=== PATIENT | male | born 1970 | race Caucasian/White ===

== ENCOUNTER 2017-10-25 06:15 | Observation (INO) | payer OTHER ==
[~2017-10-25 06:15] MED LIST: Buffered Lidocaine 0.9% SYRIN* 5 ML/SYR SYRINGE INTRADERM ONE; Famotidine IV* 10 MG/ML 2 ML (20 mg) IV ONE; Metoclopramide TAB* 10 MG PO ONE
[2017-10-25] MEDS ORDERED: Famotidine IV* 10 MG/ML 2 ML (20 mg) ONE (06:45)
[2017-10-25] MEDS ORDERED: Metoclopramide TAB* 10 MG ONE (06:45)
[2017-10-25] MEDS ORDERED: ceFAZolin 2 GM PREMIX (*) 2 GM/50 ML BAG IVPB ONE (06:45)
[2017-10-25] MEDS ORDERED: fentaNYL* 50 MCG/ML 2 ML VIAL (100 MCG VIAL) ONE ×3 (07:10→10:56)
[2017-10-25] MEDS ORDERED: Cisatracurium* 2 MG/ML MDV 5 ML ONE (07:10)
[2017-10-25] MEDS ORDERED: Ondansetron INJ* 2 MG/ML VIAL ONE ×2 (07:10→10:30)
[2017-10-25] MEDS ORDERED: Dexamethasone IV* 4 MG/ML 1 ML (4 MG) ONE (07:10)
[2017-10-25] MEDS ORDERED: Lidocaine 2% PF * 5 ML VIAL ONE (07:10)
[2017-10-25] MEDS ORDERED: Propofol* 10 MG/ML 20 ML BTL IV PUSH ONE (07:10)
[2017-10-25] MEDS ORDERED: Midazolam* 1 MG/ML 5 ML VIAL (5 MG) ONE (07:10)
[2017-10-25] MEDS ORDERED: Lidocaine 1% MPF wEPI 200,000* 30 ML SDV ONE (07:11)
[2017-10-25] MEDS ORDERED: Bacitracin IV* 50,000 UNITS INJ ONE (07:11)
[2017-10-25] MEDS ORDERED: Thrombin 5,000 UNITS* 1 APPLIC KIT - topical use - TOPICAL ONE (07:11)
[2017-10-25] MEDS ORDERED: Artificial Tear OPHTH.OINT* 3.5 GM ONE (07:14)
[2017-10-25] MEDS ORDERED: Naloxone* 0.4 MG/ML 1 ML VIAL IV PRN (09:17)
[2017-10-25] MEDS ORDERED: HYDROmorphone INJ* 0.5 MG/0.5 ML SYRINGE IV PRN (09:17)
[2017-10-25] MEDS ORDERED: Ondansetron INJ* 2 MG/ML VIAL IV PRN ×2 (09:17→10:24)
[2017-10-25] MEDS ORDERED: Magnesium Hydroxide LIQ* 30 ML UDC PO PRN (10:24)
[2017-10-25] MEDS ORDERED: Acetaminophen TAB* 325 MG PO PRN (10:24)
[2017-10-25] MEDS ORDERED: HYDROmorphone INJ* 0.5 MG/0.5 ML SYRINGE ONE (10:34)
[2017-10-25] MEDS: fentaNYL* 50 MCG/ML 2 ML VIAL (100 MCG VIAL) IV PRN ×4 (10:35→10:57)
--- NOTE | 2017-10-25 11:03 | RAD ---
INDICATION: Left L5-S1 discectomy COMPARISONS: MRI dated September 18, 2014 TECHNIQUE: Fluoroscopy was provided for a surgical procedure. Total fluoroscopy time is: 12.7 seconds FINDINGS: Spot images demonstrate a metallic probe within the L5-S1 intervertebral disc space counting from L5 as the last lumbar type vertebral body. IMPRESSION: FLUOROSCOPY WAS PROVIDED FOR A SURGICAL PROCEDURE CPT II Codes: G9500
[2017-10-25] MEDS: HYDROcodone/ACETAMIN 5-325 MG* 1 TAB PO PRN ×2 (14:35→22:22)
--- NOTE | 2017-10-25 16:35 | OP ---
OPERATIVE REPORT: DATE OF OPERATION: 10/25/17 DATE OF : 74 SURGEON: Maribel Horan MD MANAGER SOFTWARE: RASHAWN Patiño The case was done with the assistance of a surgical PA because of the complexity of the case. ANESTHESIA: General. PRE-OP DIAGNOSIS: Left L5-S1 herniated nucleus pulposus. POST-OP DIAGNOSIS: Left L5-S1 herniated nucleus pulposus. OPERATIVE PROCEDURE: The patient underwent a left L5-S1 lumbar microdiskectomy. INDICATIONS: The patient is a very pleasant 46-year-old gentleman with complaints of back pain radiating to left lower extremity. His MRI of the lumbar spine also revealed a large left L5-S1 herniated nucleus pulposus. After failing conservative treatment modalities, the patient was offered the option of surgical intervention for a left L5-S1 diskectomy. After explaining expectations, limitations, and possible complications of the procedure to the patient with complications including, but not limited to, bleeding, infection, risk of injury to adjacent structures, coma, paralysis, , stroke, blindness , cancer, instability, spinal fluid leak, need for additional procedures, anesthesia risk, the patient understood and was agreeable to proceed with surgery and informed consent was obtained. The patient understood that his condition might not improve and in fact may get worse after the surgery and he may need to have additional procedure in the future. The patient understood that operative plan may be modified according to the intraoperative findings and conditions. ESTIMATED BLOOD LOSS: 10 cc. COMPLICATIONS: None. DESCRIPTION OF PROCEDURE: The patient was brought to the operating room and was placed under general anesthesia by the anesthesia team. He was carefully positioned prone on the Gabriel frame on the Donn table and all bony prominences were meticulously padded. His skin was prepped and draped in the standard fashion. After appropriate surgical pause and patient identification, a small incision was marked on the skin over the L5-S1 disk level with assistance of intraoperative fluoroscopic imaging. After infiltrating the skin with local anesthetic, a #10 surgical blade was used to incise the skin. The incision was carried down with Bovie cautery, the dorsal fascia was incised, and over a series of dilators, the METRx tubular retractor system was introduced into the field. The intraoperative microscope was brought into the field and the left L5 lamina was exposed with the use of Bovie cautery. A small laminotomy was performed towards the left and very small medial partial facetectomy with the use of high-speed drill and Kerrison punches. The ligamentum flavum was gently reflected and the thecal sac and S1 nerve root was readily identified. After gentle dissection, the nerve root and the thecal sac were retracted medially and a very large disk protrusion was identified. The posterior ligament was gently incised with a surgical knife and a diskectomy was performed with the use of pituitary rongeurs. At the end of the procedure, thecal sac and the nerve root were found to be free of any pressure phenomenon. After copious irrigation and confirmation of meticulous hemostasis, and meticulous inspection of the wound, the tubular retractor was gently removed. The wound was then closed by layers with 0 interrupted Vicryl suture to approximate the dorsal fascia, 2-0 interrupted Vicryl sutures to approximate the subcutaneous tissue, while the skin was covered with Dermabond. At the end of the procedure, all counts were reported to be correct. The patient remained hemodynamically stable throughout the case. He was then gently positioned supine. He was extubated and was transferred to Recovery in excellent condition. The procedure was done with the assistance of surgical RASHAWN because of the complexity of the case. [id number] #: [id number] RADHA
--- NOTE | 2017-10-26 11:10 | PN ---
Progress Note - Progress Note Date of Service: 10/26/17 SOAP: Subjective: []No events ON. Tolerated procedure well. LLE preop pain resolved. Ambulates, Voids. Wants to go home. Objective: []VSS Wound s,c,d AAOx3, CASEY, CN II-XII grossly intact. Motor 5/5 all extremities Sensory grossly intact to light touch except mild decreased Left S1 which has significantly improved per patient and almost has returned to normal. Assessment: []46 yom POD#1 Left L5-S1 discectomy Plan: []Monitor VS, Neurochecks OOB as tolerated. DC home today. Full instructions were given. Susannah Horan MD
[2017-10-26] MEDS ORDERED: Cyclobenzaprine TAB* 10 MG PO PRN (11:17)
[2017-10-26 11:19] VITALS: BP 114/70
--- NOTE | 2017-10-26 15:11 | DS ---
DISCHARGE SUMMARY: DATE OF ADMISSION: 10/25/17 DATE OF DISCHARGE: 10/26/17 PROCEDURE: The patient underwent left L5-S1 minimally invasive diskectomy. HOSPITAL COURSE: The patient is a very pleasant 46-year-old gentleman with complaints of back pain radiating to the left lower extremity. The patient had MRI findings consistent with large left L5-S1 herniated nucleus pulposus. After failing conservative treatment modalities, he was offered the option of surgical intervention for a left L5-S1 diskectomy. He underwent the procedure and tolerated the procedure well. The patient was then transferred to the floor. He had immediate resolution of his preoperative left lower extremity pain. On the first postoperative day, he was able to ambulate, tolerating p.o. and had good pain control and he was found to be ready to be discharged home. He was discharged home with adequate pain medication and full discharge instructions were given. [id number] #: [id number] RADHA
== END 2017-10-26 11:50 | disposition home or self-care (01) ==
LOC: OR 06:15 → SSU 10:24
PROVIDERS: ADMIT Neurological Surgery; ATTEND Neurological Surgery
DX: M51.27 Other intervertebral disc displacement, lumbosacral region (principal)
CPT/HCPCS: 76001; A9270-GY; G0378; J0690; J1100; J1170; J2001; J2250; J2405; J2704; J3010